=== PATIENT | female | born 1970 | race American Indian/Alaskan Native ===

== ENCOUNTER 2016-09-17 12:02 | Emergency (ER) | payer OTHER ==
[2016-09-17] MEDS ORDERED: Naproxen 550 mg Tab PO STA (12:43)
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
[2016-09-17] MEDS ORDERED: Naproxen 550 mg Tab PO ONE (12:55)
--- NOTE | 2016-09-17 14:19 | RAD ---
PROCEDURE: Left Knee Radiographs. HISTORY: Pain. COMPARISON: None. FINDINGS: BONES: Normal. No fracture. JOINTS: Normal. No osteoarthritis. JOINT EFFUSION: Possible OTHER FINDINGS: None. IMPRESSION: No fracture. Small suprapatellar joint effusion possible. Overlying apparent band obscures detail here
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
[2016-09-17 14:37] VITALS: BP 119/82; PULSE 81; RESP 20; TEMP 97.8; O2SAT 98
== END 2016-09-17 14:36 | disposition home or self-care (01) ==
LOC: C.ER 12:02
DX: S80.02XA Contusion of left knee, initial encounter (principal); S66.912A Strain of unspecified muscle, fascia and tendon at wrist and hand level, left hand, initial encounter; V78.6XXA Passenger on bus injured in noncollision transport accident in traffic accident, initial encounter